=== PATIENT | female | born 1955 | race Caucasian/White ===

== ENCOUNTER 2018-11-06 08:49 | Emergency (ER) | payer BC, OTHER ==
[2018-11-06 09:09] VITALS: BP 117/66
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
== END 2018-11-06 10:49 | disposition home or self-care (01) ==
LOC: UCEAST 08:49
DX: S06.0X0A Concussion without loss of consciousness, initial encounter (principal); S50.811A Abrasion of right forearm, initial encounter; S00.31XA Abrasion of nose, initial encounter; V43.52XA Car driver injured in collision with other type car in traffic accident, initial encounter; Y92.410 Unspecified street and highway as the place of occurrence of the external cause; F41.9 Anxiety disorder, unspecified
CPT/HCPCS: 99211; G0463

== ENCOUNTER 2018-11-10 19:49 | Emergency (ER) | payer OTHER ==
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
[2018-11-11 01:51] VITALS: BP 0/0
== END 2018-11-11 01:50 | disposition home or self-care (01) ==
LOC: ED 19:49
DX: S09.90XA Unspecified injury of head, initial encounter (principal); V49.40XA Driver injured in collision with unspecified motor vehicles in traffic accident, initial encounter; Y92.410 Unspecified street and highway as the place of occurrence of the external cause; Z79.899 Other long term (current) drug therapy
CPT/HCPCS: 70450; 99282